=== PATIENT | female | born 1985 | race Caucasian/White ===

== ENCOUNTER → 2017-01-13 | Outpatient (CLI) | payer MEDICAID, MEDICARE ==
[~2017-01-13] MED LIST: CELE10TA9 PO; PROM25SU8 PO
--- NOTE | 2017-01-13 21:04 | EKG ---
Date Performed: 01/13/2017 Time Performed: 10:23:33 PTAGE: 31 years EKG: Sinus rhythm POSSIBLE LEFT ATRIAL ENLARGEMENT NONSPECIFIC T-WAVE ABNORMALITY BORDERLINE ECG NO PREVIOUS TRACING DOCTOR: Bambi Hutson Interpretating Date/Time 01/13/2017 21:02:19
== END ==
LOC: HCAV 09:57
PROVIDERS: ATTEND Psychiatry & Neurology Child & Adolescent Psychiatry
DX: F41.1 Generalized anxiety disorder (principal); F33.1 Major depressive disorder, recurrent, moderate; R94.31 Abnormal electrocardiogram [ECG] [EKG]
CPT/HCPCS: 93005

== ENCOUNTER 2017-09-10 11:17 | Emergency (ER) | payer MEDICAID, OTHER ==
[~2017-09-10] VITALS: Ht 162.6 cm; Wt 63.1 kg
[2017-09-10 11:21] VITALS: BP 179/96; PULSE 70; RESP 18; TEMP 97.9; O2SAT 99
[2017-09-10] MEDS ORDERED: AUGM875T3 PO (11:31)
[2017-09-10] MEDS ORDERED: TRAZ50TA12 PO (11:31)
[2017-09-10] MEDS ORDERED: VENL150T PO (11:31)
[2017-09-10] MEDS ORDERED: BUSP10TA PO (11:31)
[2017-09-10] MEDS ORDERED: CIPRHC10A RIGHT EAR (11:47)
[2017-09-10] MEDS ORDERED: CIPR-9 PO (11:47)
--- NOTE | 2017-09-10 11:54 | PD ---
HPI Chief Complaint: ENT Complaint Time Seen by Provider: 11:37 Travel History International Travel<30 days: No Contact w/Intl Traveler<30days: No Traveled to known affect area: No History of Present Illness HPI 32-year-old female presents emergency department for evaluation of right ear pain, sinus pain that is been present for approximately 1 week. Patient states that a week ago she developed what she thought was a sinus infection and began having right ear pain with green discharge and decided to go to urgent care on Wednesday. Says she was prescribed Augmentin and prednisone but says that her pain is unimproved and is actually worsened in her right ear. Says she has a history of chronic ear problems and says she "has a hole in her eardrum". Patient has previously seen an search engine optimization consultant but was referred to a subspecialists but has not been able to follow-up because of insurance issues. She denies any fevers or chills. Denies stiff neck. PFSH Past Medical History Anxiety: Yes Depression: Yes Diminished Hearing: No Immunizations Current: Yes Tetanus Vaccination: Unknown Influenza Vaccination: No ?: Not LMP: TWO WEEKS AGO Past Surgical History Tympanostomy Tube: Yes Other Surgery: Yes (ADNOIDS) Social History Alcohol Use: No Tobacco Use: No Substance Use: No Allergies-Medications (Allergen,Severity, Reaction): Coded Allergies: No Known Allergies (Verified Adverse Reaction, Unknown, 09/10/17) Reported Meds & Prescriptions Reported Meds & Active Scripts Active Cipro Hc Otic Drops (Ciprofloxacin/Hydrocortisone) 0.2-1% Susp 3 Drop RIGHT EAR BID 7 Days Cipro (Ciprofloxacin HCl) 500 Mg Tab 500 Mg PO BID 7 Days Reported Augmentin (Amoxicillin-Clavulanate) 875-125 Mg Tab 1 Tab PO BID Buspirone (Buspirone HCl) 10 Mg Tab 10 Mg PO TID Venlafaxine ER 24 HR (Venlafaxine HCl) 150 Mg Tab 150 Mg PO DAILY Trazodone (Trazodone HCl) 50 Mg Tab 50 Mg PO HS Review of Systems Except as stated in HPI: all other systems reviewed are Neg Physical Exam Narrative GENERAL: Well-nourished, well-developed patient. SKIN: Focused skin assessment warm/dry. HEAD: Normocephalic. EYES: No scleral icterus. No injection or drainage. NECK: Supple, trachea midline. No JVD. Right preauricular, postauricular and anterior chain cervical adenopathy. No bulging of the ear. Left tympanic membrane appears perforated, no discharge or exudate noted. Right tympanic membrane-white and appears as if she has scarring. Blue and green discharge. Tenderness palpation of the tragus and auricle. CARDIOVASCULAR: Regular rate and rhythm without murmurs, gallops, or rubs. RESPIRATORY: Breath sounds equal bilaterally. No accessory muscle use. GASTROINTESTINAL: Abdomen soft, non-tender, nondistended. MUSCULOSKELETAL: No cyanosis, or edema. BACK: Nontender without obvious deformity. No CVA tenderness. Data Data Last Documented VS Vital Signs Date Time Temp Pulse Resp B/P (MAP) Pulse Ox O2 Delivery O2 Flow Rate FiO2 09/10/17 11:21 97.9 70 18 179/96 (123) 99 Orders Orders Ciprofloxacin (Cipro) (09/10/17 12:00) Ed Discharge Order (09/10/17 12:00) MDM Medical Decision Making Medical Screen Exam Complete: Yes Emergency Medical Condition: Yes Differential Diagnosis Malignant otitis externa, otitis media, swimmer's ear, sinusitis Narrative Course 32-year-old female presents emergency department evaluation of right ear pain that is been present for approximately 1 week. She went to urgent care prescribed medication however, her pain is persistent so she decided to come here for further evaluation. Vital signs are stable. Physical exam demonstrates a blue and green discharge in the right ear. This is concerning for Pseudomonas. Patient will receive Cipro p.o. and Ciprodex for eardrops. Patient was also complaining of sinus pain, although exam is objectively normal regarding her sinuses. She is strongly advised to follow-up in ear nose throat specialist and primary care. Advised that if her pain worsen or persist she should return for further evaluation and treatment. She received her first dose of Cipro here in the emergency department today. Diagnosis Primary Impression: Otitis externa Qualified Codes: H60.391 - Other infective otitis externa, right ear Additional Impression: Sinusitis Qualified Codes: J01.10 - Acute frontal sinusitis, unspecified Referrals: Ear / Nose / Throat Specialist Additional Instructions: If your pain does not improve within 2 days, return to the emergency department for further evaluation patient may need further treatment. Continue the steroids as given by the urgent care. Stop the Augmentin. Start the Cipro and Cipro eardrops. I highly recommend you follow-up with an search engine optimization consultant. You received your first dose of Cipro here in the emergency department today. Scripts Ciprofloxacin-Hydrocortisone Otic Drops (Cipro Hc Otic Drops) 0.2-1% Susp 3 DROP RIGHT EAR BID for Infection for 7 Days, #1 BOTTLE 0 Refills Prov: Rajesh Torre MD 09/10/17 Ciprofloxacin (Cipro) 500 Mg Tab 500 MG PO BID for Infection for 7 Days, #14 TAB 0 Refills Prov: Rajesh Torre MD 09/10/17 Disposition: 01 DISCHARGE HOME Condition: Stable Milena Mujica September 10, 2017 11:54
[2017-09-10] MEDS ORDERED: CIPROFLOXACIN 500 MG TAB PO ONE (12:00)
== END 2017-09-10 12:02 | disposition home or self-care (01) ==
LOC: PHED 11:17 → PHEFT 12:02
DX: H60.91 Unspecified otitis externa, right ear (principal); J01.10 Acute frontal sinusitis, unspecified; F41.9 Anxiety disorder, unspecified; F32.9 Major depressive disorder, single episode, unspecified
CPT/HCPCS: 99283